=== PATIENT | male | born 1960 | race African-American/Black ===

== ENCOUNTER 2017-02-11 10:54 | Emergency (ER) | payer OTHER ==
[~2017-02-11] VITALS: Ht 185.4 cm; Wt 80.7 kg
[2017-02-11] MEDS ORDERED: CLONIDINE HCL 0.1 MG TABLET PO ONE (11:30)
--- NOTE | 2017-02-11 11:34 | PHYS DOC ---
Past Medical History Past Medical History: GERD, High Cholesterol, Hypertension Past Surgical History: No Surgical History Alcohol Use: Heavy Drug Use: None Adult General Chief Complaint Chief Complaint: ANXIETY/PANIC ATTACK HPI HPI Patient is a 56 year old male with history of hypertension and acid reflux who presents today with multiple complaints. Patient states he is going through a divorce. Patient states he is under a lot of stress. Patient states his blood pressure has been elevated for the last 1 year. Patient states he has history of hypertension and is supposed to take lisinopril and hydrochlorothiazide. Patient states he has not seen his PCP for 1 year hence does not take his blood pressure medicines anymore. Patient states yesterday he was so anxious due to his divorce, he states his friend gave him blood pressure medicine specifically losartan and amlodipine, he states another friend gave him hydrocodone which she took, he also states another friend gave him another medication. Patient denies any chest pain or shortness of breath. He states is in the ED today to get medicine to help him calm down. He is in the ED with another family member who is doing most of the speaking. Patient denies any chest pain or shortness of breath. He also states he had alcohol 2 days ago to help manage his anxiety. He states he drinks every day 6 bottles of beer. He is also complaining of chronic left upper extremity pain with tingling to the fingers especially the time. Patient stated this has been going on for months. Review of Systems Review of Systems Constitutional: Denies fever or chills [] Eyes: Denies change in visual acuity, redness, or eye pain [] HENT: Denies nasal congestion or sore throat [] Respiratory: Denies cough or shortness of breath [] Cardiovascular: No additional information not addressed in HPI [] GI: Denies abdominal pain, nausea, vomiting, bloody stools or diarrhea [] : Denies dysuria or hematuria [] Musculoskeletal: Left upper extremity pain Integument: Denies rash or skin lesions [] Neurologic: Denies headache, focal weakness or sensory changes [] Endocrine: Denies polyuria or polydipsia [] pysch:anxiety Current Medications Current Medications Current Medications Medications (Trade) Dose Ordered Sig/Primitivo Start Time Stop Time Status Last Admin Dose Admin Alprazolam (Xanax) 0.5 mg 1X ONCE 02/11/17 13:30 02/11/17 13:31 DC 02/11/17 13:44 0.5 MG Clonidine HCl (Catapres) 0.2 mg 1X ONCE 02/11/17 11:30 02/11/17 11:32 DC 02/11/17 12:02 0.2 MG Famotidine (Pepcid) 20 mg 1X ONCE 02/11/17 11:45 02/11/17 11:46 DC 02/11/17 12:02 20 MG Potassium Chloride (Klor-Con) 40 meq 1X ONCE 02/11/17 12:45 02/11/17 12:46 DC 02/11/17 13:15 40 MEQ Allergies Allergies Allergies Coded Allergies Type Severity Reaction Last Updated Verified Penicillins Allergy Intermediate hives 02/11/17 Yes Physical Exam Physical Exam Constitutional: Well developed, well nourished, no acute distress, non-toxic appearance. [] HENT: Normocephalic, atraumatic, bilateral external ears normal, oropharynx moist, no oral exudates, nose normal. [] Eyes: PERRLA, EOMI, conjunctiva normal, no discharge. [] Neck: Normal range of motion, no tenderness, supple, no stridor. [] Cardiovascular:Heart rate regular rhythm, no murmur [] Lungs & Thorax: Bilateral breath sounds clear to auscultation [] Abdomen: Bowel sounds normal, soft, no tenderness, no masses, no pulsatile masses. [] Skin: Warm, dry, no erythema, no rash. [] Back: No tenderness, no CVA tenderness. [] Extremities: No tenderness, no cyanosis, no clubbing, ROM intact, no edema. [] Neurologic: Alert and oriented X 3, normal motor function, normal sensory function, no focal deficits noted. [] Psychologic: Affect normal, judgement normal, mood normal. [] Current Patient Data Vital Signs Vital Signs Date Time Temp Pulse Resp B/P Pulse Ox O2 Delivery O2 Flow Rate FiO2 02/11/17 13:17 69 18 160/114 98 Room Air 02/11/17 10:57 98 98.0 Lab Values Laboratory Tests Test 02/11/17 11:50 02/11/17 11:52 White Blood Count 4.2x10^3/uL (4.0-11.0) Red Blood Count 5.02x10^6/uL (4.30-5.70) Hemoglobin 12.5g/dL (13.0-17.5) L Hematocrit 38.7% (39.0-53.0) L Mean Corpuscular Volume 77fL (79-100) L Mean Corpuscular Hemoglobin 25pg (25-35) Mean Corpuscular Hemoglobin Concent 32g/dL (31-37) Red Cell Distribution Width 15.8% (11.5-14.5) H Platelet Count 176x10^3/uL (140-400) Neutrophils (%) (Auto) 65% (31-73) Lymphocytes (%) (Auto) 24% (24-48) Monocytes (%) (Auto) 11% (0-9) H Eosinophils (%) (Auto) 0% (0-3) Basophils (%) (Auto) 1% (0-3) Neutrophils # (Auto) 2.7x10^3uL (1.8-7.7) Lymphocytes # (Auto) 1.0x10^3/uL (1.0-4.8) Monocytes # (Auto) 0.5x10^3/uL (0.0-1.1) Eosinophils # (Auto) 0.0x10^3/uL (0.0-0.7) Basophils # (Auto) 0.0x10^3/uL (0.0-0.2) Prothrombin Time 13.1SEC (11.7-14.0) Prothrombin Time INR 1.1 (0.8-1.1) Sodium Level 141mmol/L (136-145) Potassium Level 3.1mmol/L (3.5-5.1) L Chloride Level 103mmol/L (98-107) Carbon Dioxide Level 29mmol/L (21-32) Anion Gap 9 (6-14) Blood Urea Nitrogen 11mg/dL (8-26) Creatinine 1.0mg/dL (0.7-1.3) Estimated GFR (Cockcroft-Gault) 92.9 BUN/Creatinine Ratio 11 (6-20) Glucose Level 112mg/dL (70-99) H Calcium Level 9.2mg/dL (8.5-10.1) Magnesium Level 2.0mg/dL (1.8-2.4) Total Bilirubin 0.7mg/dL (0.2-1.0) Aspartate Amino Transferase (AST) 33U/L (15-37) Alanine Aminotransferase (ALT) 31U/L (16-63) Alkaline Phosphatase 58U/L (46-116) Creatine Kinase 413U/L (39-308) H Creatine Kinase MB (Mass) 4.2ng/mL (0.0-3.6) H Creatine Kinase MB Relative Index 1.0% (0-4) Troponin I Quantitative 0.025ng/mL (0.000-0.055) AY-Shs-Y-Type Natriuretic Peptide 160pg/mL (0-124) H Total Protein 7.7g/dL (6.4-8.2) Albumin 3.5g/dL (3.4-5.0) Albumin/Globulin Ratio 0.8 (1.0-1.7) L Lipase 117U/L (73-393) Ethyl Alcohol Level < 10mg/dL (0-10) Urine Collection Type Unknown Urine Color Sofi Urine Clarity Clear Urine pH 5.5 Urine Specific [place] >=1.030 Urine Protein 30mg/dL (NEG-TRACE) Urine Glucose (UA) Negativemg/dL (NEG) Urine Ketones (Stick) Negativemg/dL (NEG) Urine Blood Negative (NEG) Urine Nitrite Negative (NEG) Urine Bilirubin Small (NEG) Urine Urobilinogen Dipstick 1.0mg/dL (0.2 mg/dL) Urine Leukocyte Esterase Negative (NEG) Urine RBC 0/HPF (0-2) Urine WBC 1-4/HPF (0-4) Urine Bacteria 0/HPF (0-FEW) Urine Hyaline Casts Few/HPF Urine Mucus Marked/LPF Urine Opiates Screen Pos (NEG) Urine Methadone Screen Neg (NEG) Urine Barbiturates Neg (NEG) Urine Phencyclidine Screen Neg (NEG) Urine Amphetamine/Methamphetamine Neg (NEG) Urine Benzodiazepines Screen Neg (NEG) Urine Cocaine Screen Pos (NEG) Urine Cannabinoids Screen Neg (NEG) Urine Ethyl Alcohol Neg (NEG) Laboratory Tests 02/11/17 11:50 Laboratory Tests 02/11/17 11:50 EKG EKG [] Radiology/Procedures Radiology/Procedures [] Course & Med Decision Making Course & Med Decision Making Pertinent Labs and Imaging studies reviewed. (See chart for details) Patient is in the ED with multiple complaints specifically related to his current situation where he is going through divorce. He states is under a lot of stress. He states he doesn't know if he has a place to stay because he got kicked out by the . He is in the ED with another family member who states she is staying with the patient. Patient is not suicidal or homicidal. CT of the head is negative for any acute findings, chest x-ray interpreted by radiologist as negative for any acute findings. 11:[address] Davis sinus rate, heart rate 67, QRS interval 86 no STEMI. CBC, Troponin, CMKb with no acute findings. BMP with potassium of 3.1, patient was given 40 mEq of potassium by mouth in the ED. Patient appears to be going through overwhelming stress. His BP is a highly related to his stress as well as chronic hypertension. He is not on any medications right now because he has no PCP. On arrival his BP was around 176/ 123, he was given clonidine, it came down to 152/105. He has no headache or neurological symptoms. Heart rate has been in the 60s to 80s. Drug screen was positive for cocaine and opiates. Consulted William from PAT team who came and talked to patient and gave him resources on way to follow-up with his anxiety. Patient's left upper extremity pain is consistent with cervical radiculopathy. Discharged with prescription for lisinopril 40 mg and hydrochlorothiazide 12.5 mg, this patient's regular patient medicines that he has not been taking. He was also discharged with Atarax for is anxiety. Provided him a PCP for follow- up. Discharged in stable condition. Julius Disclaimer Julius Disclaimer This electronic medical record was generated, in whole or in part, using a voice recognition dictation system. Departure Departure Impression: Primary Impression: Anxiety Additional Impressions: Accelerated hypertension Cervical radiculopathy Disposition: HOME, SELF-CARE Condition: STABLE Patient Instructions: Anxiety and Panic Attacks, [id number] Additional Instructions: You were seen for multiple complaints including anxiety and panic attacks. He' ll blood pressure was also high. We highly recommend you follow-up with a doctor from the list provided as soon as possible. Take the prescribed medicines as ordered. Scripts Hydrochlorothiazide (Hydrochlorothiazide Tablet)12.5 Mg Tablet1 Tab PO DAILY # 30 TAB Ref 5 Prov:DAPHNE ESPINOZA NOODLE PRESS OPERATOR 02/11/17 Lisinopril 40 Mg Tablet1 Tab PO DAILY #30 TAB Ref 5 Prov:DAPHNE ESPINOZA APRN 02/11/17 Hydroxyzine Hcl 25 Mg Tablet1 Tab PO TID #20 TAB Prov:DAPNHE ESPINOZA APRN 02/11/17 Problem Qualifiers DAPHNE ESPINOZA APRN Feb 11, 2017 11:34
[2017-02-11] MEDS ORDERED: FAMOTIDINE 20 MG/2 ML VIAL IVP ONE (11:45)
--- NOTE | 2017-02-11 11:57 | RAD ---
Portable chest, 02/11/2017: History: Hypertension The heart size and pulmonary vascularity are normal. No pulmonary infiltrates are seen. There is no evidence of pleural fluid. IMPRESSION: No acute cardiopulmonary abnormality is detected.
--- NOTE | 2017-02-11 11:59 | RAD ---
Examination: CT head without contrast History: History of hypertension, left arm numbness. Comparison: None available PQRS Compliance Statement: One or more of the following individualized dose reduction techniques were utilized for this examination: 1. Automated exposure control 2. Adjustment of the mA and/or kV according to patient size 3. Use of iterative reconstruction technique Findings: There is no evidence of midline shift. Moderate bilateral periventricular white matter hypodensities likely chronic small vessel ischemic disease. There is no acute intracranial bleed or extra axial fluid collection identified. Prominence of the sulci likely age-related atrophic changes. The visualized lateral ventricles, third ventricle, fourth ventricle appropriate for age. The basal cisterns are uneffaced The visualized sinuses, mastoid air cells are clear. Impression: 1. No acute intracranial findings. 2. Moderate bilateral periventricular white matter hypodensities likely chronic small vessel ischemic disease.
[2017-02-11 12:01] LABS: BASO % 1 % (0-3); EOS % 0 % (0-3); HEMATOCRIT 38.7 % (39.0-53.0); HEMOGLOBIN 12.5 g/dL (13.0-17.5); LYMPH % 24 % (24-48); MEAN CORPUSCULAR HEMOGLOBIN 25 pg (25-35); MEAN CORPUSCULAR HGB CONC 32 g/dL (31-37); MEAN CORPUSCULAR VOLUME 77 fL (79-100); MONO % 11 % (0-9); NEUT % 65 % (31-73); PLATELET COUNT 176 x10^3/uL (140-400); RED BLOOD COUNT 5.02 x10^6/uL (4.30-5.70); RED CELL DISTRIBUTION WIDTH 15.8 % (11.5-14.5); WHITE BLOOD COUNT 4.2 x10^3/uL (4.0-11.0)
[2017-02-11 12:12] LABS: INR 1.1 (0.8-1.1); PROTHROMBIN TIME PATIENT 13.1 SEC (11.7-14.0)
[2017-02-11 12:16] LABS: BILIRUBIN,URINE SMALL (NEG); GLUCOSE,URINE NEGATIVE (NEG); NITRITE,URINE NEGATIVE (NEG); PH,URINE 5.5; PROTEIN,URINE 30 mg/dL (NEG-TRACE)
[2017-02-11 12:18] LABS: CALCIUM 9.2 mg/dL (8.5-10.1); GFR 92.9; POTASSIUM 3.1 mmol/L (3.5-5.1)
[2017-02-11 12:22] LABS: BARBITURATES NEG (NEG); BENZODIAZEPINES NEG (NEG); CANNABINOIDS NEG (NEG); COCAINE POS (NEG); METHADONE NEG (NEG); OPIATES POS (NEG); PHENCYCLIDINE NEG (NEG)
[2017-02-11 12:23] LABS: ETHANOL, URINE NEG (NEG)
[2017-02-11 12:24] LABS: ALBUMIN 3.5 g/dL (3.4-5.0); ALBUMIN/GLOBULIN RATIO 0.8 (1.0-1.7); TOTAL BILIRUBIN 0.7 mg/dL (0.2-1.0); TOTAL PROTEIN 7.7 g/dL (6.4-8.2)
[2017-02-11 12:28] LABS: BACTERIA,URINE 0 /HPF (0-FEW); RBC,URINE 0 /HPF (0-2)
[2017-02-11 12:34] LABS: CKMB MASS 4.2 ng/mL (0.0-3.6)
[2017-02-11] MEDS ORDERED: POTASSIUM CHLORIDE 20 MEQ TABLET.ER. PO ONE (12:45)
[2017-02-11] MEDS ORDERED: ALPRAZOLAM 0.5 MG TABLET PO ONE (13:30)
[2017-02-11 13:46] VITALS: BP 152/105
[2017-02-11] MEDS ORDERED: LISI40TA PO (14:01)
[2017-02-11] MEDS ORDERED: HYDR12.58 PO (14:01)
[2017-02-11] MEDS ORDERED: HYDR25TA PO (14:01)
--- NOTE | 2017-02-12 06:44 | EKG ---
[facility] [address] [place] [address] Test Date: 2017-02-11 Test Time: 11:05:43 Pat Name: YADIRA VIERA Department: Room: Gender: M [employer]zen [employer] Manager: : 1960 Requested By: DAPHNE ESPINOZA Order Number: [id number] Reading MD: Lucinda Gonzalez Measurements Intervals [place] Rate: 67 P: 66 AL: 136 QRS: 22 QRSD: 86 T: 78 QT: 384 QTc: 409 Interpretive Statements SINUS RHYTHM LEFT ATRIAL ABNORMALITY T ABNORMALITY IN HIGH LATERAL LEADS ABNORMAL ECG RI6.01 No previous ECG available for comparison Electronically Signed On 02-13-2017 20:00:44 CDT by Lucinda Gonzalez
== END 2017-02-11 14:25 | disposition home or self-care (01) ==
LOC: ER 10:54
DX: I10 Essential (primary) hypertension (principal); M54.12 Radiculopathy, cervical region; F41.9 Anxiety disorder, unspecified; Z88.0 Allergy status to penicillin
CPT/HCPCS: 36415; 70450; 71010; 80053; 80305; 80320; 81001; 82550; 82553; 83690; 83735; 83880; 84484; 85027; 85610; 93005; 96374; 99285; S0028; G0480; G0481

== ENCOUNTER 2017-02-23 12:48 | Emergency (ER) | payer OTHER ==
[~2017-02-23] VITALS: Ht 188 cm; Wt 82.6 kg
[~2017-02-23 12:48] MED LIST: HYDR12.58 PO; HYDR25TA PO; LISI40TA PO
[2017-02-23] MEDS ORDERED: ASPIRIN 325 MG TABLET PO ONE (13:45)
--- NOTE | 2017-02-23 13:56 | EKG ---
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
[2017-02-23 14:21] LABS: BASO % 1 % (0-3); EOS % 0 % (0-3); HEMATOCRIT 37.8 % (39.0-53.0); LYMPH # 1.5 x10^3/uL (1.0-4.8); LYMPH % 21 % (24-48); MEAN CORPUSCULAR HEMOGLOBIN 25 pg (25-35); MEAN CORPUSCULAR HGB CONC 32 g/dL (31-37); MEAN CORPUSCULAR VOLUME 78 fL (79-100); MONO % 9 % (0-9); NEUT % 69 % (31-73); PLATELET COUNT 212 x10^3/uL (140-400); RED BLOOD COUNT 4.83 x10^6/uL (4.30-5.70); RED CELL DISTRIBUTION WIDTH 15.9 % (11.5-14.5)
--- NOTE | 2017-02-23 14:21 | RAD ---
Portable chest, 02/23/2017: History: Chest pain, hypertension Comparison is made to a study from 02/11/2017. The heart size and pulmonary vascularity are normal. There is minimal parenchymal scarring. No pulmonary infiltrate is seen. There is no evidence of pleural fluid. IMPRESSION: No acute cardiopulmonary abnormality is detected.
--- NOTE | 2017-02-23 14:25 | RAD ---
Left elbow, 3 views, 02/23/2017: History: Elbow pain No acute fracture or dislocation is identified. There is a small calcification at the triceps tendon insertion site on the olecranon process. The appearance suggests a tendon ossification from old trauma versus an old nonunited fractured spur. There is moderate overlying soft tissue swelling. No significant joint effusion is evident. IMPRESSION: 1. 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 2. No acute bony abnormality is detected.
[2017-02-23 14:35] LABS: CALCIUM 9.4 mg/dL (8.5-10.1); CREATININE 0.9 mg/dL (0.7-1.3); GFR 104.9; POTASSIUM 3.1 mmol/L (3.5-5.1)
[2017-02-23 14:41] LABS: ALBUMIN 3.4 g/dL (3.4-5.0); ALBUMIN/GLOBULIN RATIO 0.8 (1.0-1.7); TOTAL BILIRUBIN 0.4 mg/dL (0.2-1.0); TOTAL PROTEIN 7.8 g/dL (6.4-8.2)
[2017-02-23] MEDS ORDERED: POTASSIUM CHLORIDE 20 MEQ TABLET.ER. PO ONE (14:45)
--- NOTE | 2017-02-23 14:53 | PHYS DOC ---
Past Medical History Past Medical History: GERD, High Cholesterol, Hypertension Past Surgical History: No Surgical History Alcohol Use: Heavy Additional Information: quitting, last drink 2 weeks ago. Drug Use: None Social History Narrative: cocaine a couple of weeks ago Adult General Chief Complaint Chief Complaint: UPPER EXTREMITY PAIN HPI HPI Patient is a 56 year old male who presents with left upper extremity pain. Patient reports this morning he rolled over in bed and had left elbow pain. He states since that time he has had pain radiating throughout his left arm greatest in the shoulder and upper arm, with continued left elbow pain especially with movement. Denies associated chest pain, shortness of breath, nausea, diaphoresis. Denies numbness or weakness. Denies fevers or chills, warmth, erythema. Reports that his elbow does feel swollen. Denies any recent history of trauma. History of hypertension. Denies history of CAD, reports family history of CAD in his mother. Daily smoker, denies use of street drugs. Currently in alcohol rehabilitation. He recently started taking lisinopril for hypertension & is worried that he had perioral numbness earlier this week, no face/tongue/lip swelling at that time or today, family member states strong family history of lisinopril angioedema. Review of Systems Review of Systems Constitutional: Denies fever or chills Eyes: Denies change in visual acuity HENT: Denies nasal congestion or sore throat Respiratory: Denies cough or shortness of breath Cardiovascular: Denies chest pain or edema GI: Denies abdominal pain, nausea, vomiting Musculoskeletal: Reports left upper extremity pain greatest in the elbow Integument: Denies rash or skin lesions Neurologic: Denies headache, focal weakness or sensory changes Current Medications Current Medications Current Medications Medications (Trade) Dose Ordered Sig/Primitivo Start Time Stop Time Status Last Admin Dose Admin Aspirin (Melida Aspirin) 325 mg 1X ONCE 02/23/17 13:45 02/23/17 13:46 DC 02/23/17 14:08 325 MG Hydralazine HCl (Apresoline) 10 mg 1X ONCE 02/23/17 15:00 02/23/17 15:01 DC 02/23/17 14:58 10 MG Potassium Chloride (Klor-Con) 40 meq 1X ONCE 02/23/17 14:45 02/23/17 14:46 DC 02/23/17 14:58 40 MEQ Allergies Allergies Allergies Coded Allergies Type Severity Reaction Last Updated Verified Penicillins Allergy Intermediate hives 02/11/17 Yes Physical Exam Physical Exam Constitutional: Well developed, well nourished, no acute distress, non-toxic appearance. HENT: Normocephalic, atraumatic, bilateral external ears normal, oropharynx moist, nose normal. no face/tongue/lip swelling. Eyes: conjunctiva normal, no discharge. Neck: supple, no stridor. Cardiovascular: RRR, no murmurs, no edema. Lungs & Thorax: LCTAB, no wheezing, no respiratory distress. No reproducible tenderness with palpation over the left anterior chest wall Abdomen: soft, nontender, nondistended. Skin: Warm, dry, no erythema, no rash. Back: No tenderness. Extremities: Generalized tenderness with palpation of left upper extremity, greatest posteriorly over the elbow, mild swelling noted over the elbow posteriorly, no warmth or erythema, intact range of motion at the elbow with flexion and extension, radial pulse 2+, radial/median/ulnar nerve sensory and motor function intact. Neurologic: Alert and oriented X 3, no focal deficits noted. Psychologic: Affect normal, judgement normal, mood normal. Current Patient Data Vital Signs Vital Signs Date Time Temp Pulse Resp B/P Pulse Ox O2 Delivery O2 Flow Rate FiO2 02/23/17 18:00 80 22 163/106 100 Room Air 02/23/17 12:51 98 98.0 Lab Values Laboratory Tests Test 02/23/17 14:05 02/23/17 14:31 02/23/17 17:20 White Blood Count 7.0x10^3/uL (4.0-11.0) Red Blood Count 4.83x10^6/uL (4.30-5.70) Hemoglobin 12.0g/dL (13.0-17.5) L Hematocrit 37.8% (39.0-53.0) L Mean Corpuscular Volume 78fL (79-100) L Mean Corpuscular Hemoglobin 25pg (25-35) Mean Corpuscular Hemoglobin Concent 32g/dL (31-37) Red Cell Distribution Width 15.9% (11.5-14.5) H Platelet Count 212x10^3/uL (140-400) Neutrophils (%) (Auto) 69% (31-73) Lymphocytes (%) (Auto) 21% (24-48) L Monocytes (%) (Auto) 9% (0-9) Eosinophils (%) (Auto) 0% (0-3) Basophils (%) (Auto) 1% (0-3) Neutrophils # (Auto) 4.9x10^3uL (1.8-7.7) Lymphocytes # (Auto) 1.5x10^3/uL (1.0-4.8) Monocytes # (Auto) 0.7x10^3/uL (0.0-1.1) Eosinophils # (Auto) 0.0x10^3/uL (0.0-0.7) Basophils # (Auto) 0.0x10^3/uL (0.0-0.2) Sodium Level 143mmol/L (136-145) Potassium Level 3.1mmol/L (3.5-5.1) L Chloride Level 103mmol/L (98-107) Carbon Dioxide Level 34mmol/L (21-32) H Anion Gap 6 (6-14) Blood Urea Nitrogen 8mg/dL (8-26) Creatinine 0.9mg/dL (0.7-1.3) Estimated GFR (Cockcroft-Gault) 104.9 BUN/Creatinine Ratio 9 (6-20) Glucose Level 104mg/dL (70-99) H Calcium Level 9.4mg/dL (8.5-10.1) Total Bilirubin 0.4mg/dL (0.2-1.0) Aspartate Amino Transferase (AST) 20U/L (15-37) Alanine Aminotransferase (ALT) 21U/L (16-63) Alkaline Phosphatase 59U/L (46-116) Troponin I Quantitative < 0.017ng/mL (0.000-0.055) < 0.017ng/mL (0.000-0.055) [id number]-I-Type Natriuretic Peptide 222pg/mL (0-124) H Total Protein 7.8g/dL (6.4-8.2) Albumin 3.4g/dL (3.4-5.0) Albumin/Globulin Ratio 0.8 (1.0-1.7) L Urine Opiates Screen Neg (NEG) Urine Methadone Screen Neg (NEG) Urine Barbiturates Neg (NEG) Urine Phencyclidine Screen Neg (NEG) Urine Amphetamine/Methamphetamine Neg (NEG) Urine Benzodiazepines Screen Neg (NEG) Urine Cocaine Screen Neg (NEG) Urine Cannabinoids Screen Neg (NEG) Urine Ethyl Alcohol Neg (NEG) Laboratory Tests 02/23/17 14:05 Laboratory Tests 02/23/17 14:05 EKG EKG Interpreted by me: Normal sinus rhythm rate 67, no acute ST or T wave changes, normal intervals, no ectopy, no significant change from 02/11/2017 [] Radiology/Procedures Radiology/Procedures PROCEDURE: ELBOW LEFT 3V Left elbow, 3 views, 02/23/2017: History: Elbow pain No acute fracture or dislocation is identified. There is a small calcification at the triceps tendon insertion site on the olecranon process. The appearance suggests a tendon ossification from old trauma versus an old nonunited fractured spur. There is moderate overlying soft tissue swelling. No significant joint effusion is evident. IMPRESSION: 1. 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 2. No acute bony abnormality is detected. DICTATED and SIGNED BY: ED LOWERY MD DATE: 02/23/171418 PROCEDURE: CHEST AP ONLY Portable chest, 02/23/2017: History: Chest pain, hypertension Comparison is made to a study from 02/11/2017. The heart size and pulmonary vascularity are normal. There is minimal parenchymal scarring. No pulmonary infiltrate is seen. There is no evidence of pleural fluid. IMPRESSION: No acute cardiopulmonary abnormality is detected. DICTATED and SIGNED BY: ED LOWERY MD DATE: 02/23/17 141 [] Course & Med Decision Making Course & Med Decision Making Pertinent Labs and Imaging studies reviewed. (See chart for details) Patient presents with upper extremity pain. Symptoms seem to be related primarily to bursitis. X-ray obtained with results as above. Nathan wrap provided, recommend follow-up with ortho. Suspect upper arm pain likely related to bursitis but patient is an unreliable historian and has hypertension. Obtained labs, EKG, chest x-ray. Troponin negative. Recommended repeat troponin prior to hospital discharge. Patient is anxious to go home if negative. Never having any chest pain at any time, primarily concerned about anginal equivalent pain. Results pending at the end of my shift. Care transferred to Dr. Gomez to follow-up repeat troponin, anticipate discharge home if negative and patient remaining in stable condition. He is in stable condition at the end of my shift at time of care transfer. I assumed care of this patient from Dr. Braga. A repeat troponin was negative. I reassessed the patient and he states he feels comfortable going home. A prescription for Norvasc was provided with follow-up instruction. Patient verbalized that he understood the plan and to return if he develops any worsening of his symptoms. Dragon Disclaimer Dragon Disclaimer This electronic medical record was generated, in whole or in part, using a voice recognition dictation system. Departure Departure Impression: Primary Impression: Bursitis of left elbow Additional Impression: Essential hypertension Disposition: HOME, SELF-CARE Condition: STABLE Referrals: NO PCP (PCP) Patient Instructions: Bursitis, [id number], Hypertension, [id number] Additional Instructions: You were seen in the emergency department today for elbow pain. This appears to be bursitis. Please apply ice & use nathan wrap. Take tylenol or ibuprofen. Follow up with Dr. Blankenship in the orthopedic clinic in about 2 weeks if not improving. Take norvasc for blood pressure & you may discontinue lisinopril although we did not find evidence of allergy today. Follow up with a primary care doctor in 2-3 days for blood pressure recheck. Come back for high fever, hot/red elbow, severe chest pain or shortness of breath, any otherwise worsening condition. Scripts Amlodipine Besylate (Norvasc)2.5 Mg Tablet2.5 Mg PO DAILY #15 TAB Prov:QUETA BRAGA MD 02/23/17 Problem Qualifiers QUETA BRAGA MD Feb 23, 2017 14:53 RAGHAVENDRA GOMEZ DO Feb 24, 2017 01:18
[2017-02-23] MEDS ORDERED: hydrALAZINE 20 MG/ML VIAL. IVP ONE (15:00)
[2017-02-23 15:12] LABS: BARBITURATES NEG (NEG); BENZODIAZEPINES NEG (NEG); CANNABINOIDS NEG (NEG); COCAINE NEG (NEG); METHADONE NEG (NEG); OPIATES NEG (NEG); PHENCYCLIDINE NEG (NEG)
[2017-02-23 15:13] LABS: ETHANOL, URINE NEG (NEG)
[2017-02-23] MEDS ORDERED: AMLO2.5T2 PO (15:40)
[2017-02-23 18:00] VITALS: BP 163/106
== END 2017-02-23 18:15 | disposition home or self-care (01) ==
LOC: ER 12:48
DX: M70.22 Olecranon bursitis, left elbow (principal); I10 Essential (primary) hypertension; K21.9 Gastro-esophageal reflux disease without esophagitis; E78.00 Pure hypercholesterolemia, unspecified; F17.200 Nicotine dependence, unspecified, uncomplicated; Z88.0 Allergy status to penicillin
CPT/HCPCS: 36415; 71010; 73080; 80053; 80305; 83880; 84484; 85027; 93005; 96374; 99285; J0360; G0481